=== PATIENT | female | born 1995 | race Caucasian/White ===

== ENCOUNTER 2019-06-01 12:27 | Emergency (ER) | payer BC ==
[~2019-06-01] VITALS: Ht 182.9 cm; Wt 63.6 kg
[2019-06-01] MEDS ORDERED: BCP PO (12:35)
[2019-06-01 13:15] LABS: BASO % 0.4 % (0.0-1.0); EOS # 0.1 10^3/uL (0.0-0.5); EOS % 2.5 % (0.0-3.0); HEMATOCRIT 39.9 % (36.0-47.0); HEMOGLOBIN 12.5 g/dl (12.0-15.5); LYMPH # 1.3 10^3/uL (1.5-5.0); LYMPH % 25.8 % (24.0-44.0); MEAN CORPUSCULAR HEMOGLOBIN 30.3 pg (27.0-33.0); MEAN CORPUSCULAR HGB CONC 31.3 g/dl (32.0-36.5); MEAN CORPUSCULAR VOLUME 96.6 fl (80.0-96.0); MONO # 0.4 10^3/uL (0.0-0.8); NEUTROPHILS # 3.3 10^3/uL (1.5-8.5); NEUTROPHILS % 64.1 % (36.0-66.0); PLATELET COUNT, AUTOMATED 251 10^3/uL (150-450); RED BLOOD COUNT 4.13 10^6/uL (4.00-5.40); WHITE BLOOD COUNT 5.1 10^3/uL (4.0-10.0)
[2019-06-01 13:42] LABS: ALBUMIN 3.8 GM/DL (3.2-5.2); ALT/SGPT 44 U/L (12-78); BILIRUBIN,DIRECT < 0.1 MG/DL (0.0-0.2); BILIRUBIN,TOTAL 0.7 MG/DL (0.2-1.0); BLOOD UREA NITROGEN 12 MG/DL (7-18); CALCIUM LEVEL 9.2 MG/DL (8.5-10.1); CARBON DIOXIDE LEVEL 29 MEQ/L (21-32); CHLORIDE LEVEL 102 MEQ/L (98-107); CREATININE FOR GFR 0.94 MG/DL (0.55-1.30); GLOMERULAR FILTRATION RATE > 60.0 (>60); GLUCOSE, FASTING 62 MG/DL (70-100); LIPASE 174 U/L (73-393); POTASSIUM SERUM 5.3 MEQ/L (3.5-5.1); SODIUM LEVEL 138 MEQ/L (136-145); TOTAL PROTEIN 7.7 GM/DL (6.4-8.2)
[2019-06-01] MEDS ORDERED: D5W/0.45% SODIUM CHLORIDE 1,000 ML IV ONE (14:30)
[2019-06-01] MEDS ORDERED: ISOVUE-370 76% 100ML VIAL (Q9967) As Ordered ONE (14:40)
--- NOTE | 2019-06-01 18:03 | REPVR ---
PROCEDURE INFORMATION: Exam: US Abdomen Limited, Right Upper Quadrant Exam date and time: 06/01/2019 5:43 PM Age: 24 years old Clinical history: Pain; Other: RT flank; Additional info: Right upper quadrant pain TECHNIQUE: Imaging protocol: Real-time ultrasound of the abdomen with image documentation. Examination was focused on the right upper quadrant. COMPARISON: CT ABD/PEL W/IV CONTRAST ONLY 06/01/2019 3:34 PM FINDINGS: Liver: Unremarkable. Gallbladder: No gallstones. No gallbladder wall thickening or pericholecystic fluid. Negative sonographic Aldridge's sign, as per the performing elderly companion. Common bile duct: No stones. No ductal dilatation. Pancreas: Unremarkable as visualized. Right kidney: No mass. No definite stones. No hydronephrosis. IMPRESSION: No acute sonographic findings. Electronically signed by: Gwyn Orlando On 06/01/2019 18:02:38 PM
[2019-06-01 18:23] VITALS: BP 106/72
--- NOTE | 2019-06-02 07:18 | REP ---
CT abdomen pelvis with IV but without oral contrast: History: Right lower quadrant pain, question appendicitis. CT contrast dose: 100 mL of intravenous Isovue 370. 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 The lung bases are clear on axial CT images. The liver is homogeneous in texture with mild fatty infiltration. There is felt to be hepatomegaly. In the midclavicular line, the liver has a craniocaudal span of 20.6 cm. No focal hepatic lesion is seen. The spleen is unremarkable. No adrenal lesion is seen. No abnormality is noted in the pancreas. The gallbladder is small and contracted but unremarkable. The kidneys enhance symmetrically and appear morphologically intact. There is a retroaortic left renal vein noted as an incidental finding. The ovarian veins are redundant and somewhat prominent on the left. No evidence of free fluid. No uterine or ovarian mass or cyst is seen. Small and large bowel loops are normal in the abdomen and pelvis. A normal air-filled appendix is seen in the right lower quadrant without CT evidence of appendicitis. No abdominal wall defect is seen. Impression: 1. Fatty infiltration of the liver and hepatomegaly. 2. Normal appendix. Otherwise unremarkable CT study abdomen and pelvis. Electronically Signed by Raza Hou MD 06/02/2019 08:45 A
[2019-06-03 12:26] LABS: HEPATITIS A ANTIBODY IGM NEGATIVE (NEGATIVE); HEPATITIS B CORE ANTIBODY IGM NEGATIVE (NEGATIVE); HEPATITIS B SURFACE ANTIGEN NEGATIVE (NEGATIVE); HEPATITIS C VIRUS ABY INDEX 0.1 INDEX (<0.8)
== END 2019-06-01 18:34 | disposition home or self-care (01) ==
LOC: M ED 12:27
DX: R16.0 Hepatomegaly, not elsewhere classified (principal); Z79.3 Long term (current) use of hormonal contraceptives
CPT/HCPCS: 74177; 76705; 80047; 80048; 80076; 81001; 83690; 84702; 85025; 86705; 86709; 86803; 87340; 96360; 96361; 99284; Q9967

== ENCOUNTER 2020-06-18 11:02 | Emergency (ER) | payer BC ==
[~2020-06-18 11:02] MED LIST: BCP PO
--- NOTE | 2020-06-18 11:39 | REP ---
INDICATION: pleuritic CP COMPARISON: None. TECHNIQUE: Portable AP view of the chest FINDINGS: The mediastinum and cardiac silhouette are within normal limits for portable technique. The lung caceres are clear without acute consolidation, effusion, or pneumothorax. Skeletal structures are intact. IMPRESSION: No acute cardiopulmonary process appreciated. <Electronically signed by Dane Cota > 06/18/20 [id number]
[2020-06-18 13:28] VITALS: BP 100/68
== END 2020-06-18 13:20 | disposition home or self-care (01) ==
LOC: M ED 11:02
DX: U07.1 COVID-19 (principal)

== ENCOUNTER → 2020-09-13 | Outpatient (CLI) | payer SELFPAY | LOC: M LABSMTC 11:27 | PROVIDERS: ATTEND Pediatrics | DX: Z20.828 Contact with and (suspected) exposure to other viral communicable diseases (principal) ==

== ENCOUNTER → 2020-09-27 | Outpatient (CLI) | payer SELFPAY | LOC: M LABSMTC 11:35 | PROVIDERS: ATTEND Pediatrics | DX: Z11.52 Encounter for screening for COVID-19 (principal) ==

== ENCOUNTER → 2020-10-07 | Outpatient (CLI) | payer SELFPAY | LOC: M LABSMTC 13:40 | PROVIDERS: ATTEND Pediatrics | DX: Z20.822 Contact with and (suspected) exposure to COVID-19 (principal) ==

== ENCOUNTER → 2021-10-15 | Outpatient (CLI) | payer BC | LOC: M SOG 14:51 | PROVIDERS: ATTEND Orthopaedic Surgery Adult Reconstructive Orthopaedic Surgery | DX: M25.552 Pain in left hip (principal) ==